=== PATIENT | male | born 1990 | race African-American/Black ===

== ENCOUNTER 2019-12-29 15:11 | Observation (INO) | payer SELFPAY ==
[2019-12-29 15:32] LABS: #Basophils 0.1 thou/uL (0.0-0.2); #Eosinphils 0.2 thou/uL (0.0-0.7); #Lymphocytes 1.6 thou/uL (1.20-3.40); #Monocytes 0.3 thou/uL (0.11-0.59); #Neutrophils 4.3 thou/uL (1.40-6.50); %Basophils 0.8 % (0.0-1.0); %Eosinophils 2.7 % (0.0-10.0); %Lymphocytes 25.3 % (21.0-51.0); %Monocytes 5.2 % (0.0-10.0); Hemoglobin 16.2 g/dL (14.0-18.0); Mean Corpuscular HGB CONC 33.4 g/dL (32.0-36.0); Mean Corpuscular Hemoglobin 29.6 pg (27.0-31.0); Mean Corpuscular Volume 88.6 fL (78.0-98.0); Mean Platelet Volume 7.3 fL (7.4-10.4); Platelet Count 281 thou/uL (130-400); RBC Distribution Width 11.7 % (11.5-14.5); Red Blood Cell (RBC) Count 5.48 mill/uL (4.70-6.10); White Blood Cell (WBC) Count 6.5 thou/uL (4.8-10.8)
--- NOTE | 2019-12-29 15:32 | RAD ---
EXAM: Single view of the chest HISTORY: Chest pain COMPARISON: 09/14/2014 FINDINGS: Single view of the chest shows a normal sized cardiomediastinal silhouette. There is no [place] dence of consolidation, mass, or pleural effusion. The bones are unremarkable. IMPRESSION: No evidence of acute cardiopulmonary disease
[2019-12-29] MEDS ORDERED: Ketorolac Tromethamine 30 MG/ML VIAL ONE (15:36)
[2019-12-29] MEDS ORDERED: Fentanyl 100 MCG/2 ML VIAL ONE (15:36)
[2019-12-29 15:38] LABS: INR-International Normal Ratio 0.9; Prothrombin Time 11.9 SEC (12.0-14.7)
[2019-12-29 15:40] LABS: D-Dimer Test Less than 0.27 *mcg/mL (0.27-0.43)
[2019-12-29 15:56] LABS: ALT (SGPT) 11 U/L (8-55); AST (SGOT) 16 U/L (5-34); Albumin 3.6 g/dL (3.5-5.0); Alkaline Phosphatase 76 U/L (40-110); Anion Gap 11 mmol/L (10-20); BUN (Urea Nitrogen) 6 mg/dL (8.9-20.6); Bilirubin, Total 0.4 mg/dL (0.2-1.2); Calc. Creatinine Clearance 0 mL/min (70-130); Calcium 8.7 mg/dL (7.8-10.44); Carbon Dioxide 29 mmol/L (22-29); Chloride 103 mmol/L (98-107); Estimated GFR-MDRD Greater than 90; Globulin 2.6 g/dL (2.4-3.5); Glucose 99 mg/dL (70-105); Lipase 25 U/L (8-78); Potassium 3.9 mmol/L (3.5-5.1); Protein, Total 6.2 g/dL (6.0-8.3); Sodium 139 mmol/L (136-145)
[2019-12-29] MEDS ORDERED: Acetaminophen 650 MG Suppository PR PRN (20:56)
[2019-12-29] MEDS ORDERED: Acetaminophen 325 MG TAB PO PRN (20:56)
[2019-12-29 21:27] VITALS: BMI 24.9
--- NOTE | 2019-12-29 21:43 | HP ---
TIME OF ASSESSMENT: 2000 hours. PRIMARY CARE PHYSICIAN: None. CHIEF COMPLAINT: Chest pain. HISTORY OF PRESENT ILLNESS: Mr. Yepez is a 29-year-old gentleman who presents to the emergency department with complaints of persisting chest pain since he woke up at 5 in this morning. The patient states he was woken from his sleep at 5 a.m. with left-sided chest pain. States that lasted for a brief period of time, though he is unable to pinpoint exactly how long, he sat up and states the pain eased. He was unable to fall back asleep and woke up around 9 a.m., since then has had persisting pain on the left side of his chest, which he describes as a stabbing sensation. He states eventually the pain started to radiate to the left side of his neck and left side of his upper back. Denies any associated diaphoresis, nausea, or vomiting. Does report having some difficulty taking in a deep breath when the pain first started, but is not feeling breathless now. Has felt well in himself in recent days and denies having any recent fevers, chills, or cough. No hemoptysis. No recent travels anywhere. Denies any abdominal pain. Has never experienced pain like this in the past. Has no known comorbidities. The patient also denies having any family history of heart disease or other comorbidities that he is aware of. Denies any trauma or injuries to his chest. Does not seem to be exacerbated by any movement. Pain has fully resolved since coming into the ER. He states it went away after he was given medications. In the ED, he was given Toradol 30 mg IV as well as 75 mcg of fentanyl IV and has received 1 L of normal saline. He underwent an EKG that showed no ST changes or T-wave abnormalities. He had laboratory studies that showed normal troponin and a negative D-dimer. Remaining laboratory studies unremarkable. He had a chest x-ray done that showed no evidence of acute cardiopulmonary disease. The patient reports having asthma as a child, but no longer requires any inhalers or has any difficulty with breathing. PAST SURGICAL HISTORY: Reports having surgery to his eardrum at a young age. SOCIAL HISTORY: Denies any tobacco use. Reports rare alcohol consumption. Denies any illicit drug use. Lives with family. FAMILY HISTORY: Noncontributory. PHYSICAL EXAMINATION: GENERAL: The patient appears well developed, well nourished, who is in no acute distress. VITAL SIGNS: Temperature 98.2, pulse 62, blood pressure 110/65, respirations 16, and O2 saturation 97% on room air. HEENT: Normocephalic and atraumatic. Pupils are equal, round, and reactive to light. Sclerae without icterus. Oropharynx is clear. NECK: Supple. Full range of motion. No tenderness. CARDIAC: Regular rate and rhythm. No chest wall tenderness to palpation. No murmurs, rubs, or gallops. LUNGS: Clear to auscultation bilaterally without any wheezes, rales, or rhonchi. No tachypnea. Normal chest expansion. ABDOMEN: Soft, nontender, and nondistended. Normoactive bowel sounds present. No guarding or rigidity. No renal angle tenderness. EXTREMITIES: No lower leg swelling or edema. Peripheral pulses equal bilaterally. SKIN: Warm and dry. NEUROLOGIC: Alert and oriented x3. No neuro deficits on exam. ALLERGIES: NO KNOWN DRUG ALLERGIES. CURRENT MEDICATIONS: None. INVESTIGATIONS: As mentioned above in HPI. IMPRESSION AND PLAN: Mr. Yepez is a 29-year-old gentleman presenting with complaints of persisting chest pain since early hours this morning with no history of trauma and no reproducible pain on exam, relieved with medications given in the emergency department. He did receive aspirin and an inch of nitroglycerin paste en route given by EMS. Initial troponin negative. An EKG unremarkable. He is being admitted for observation and further ACS workup. We will continue to trend troponins. We will order a treadmill stress test. We will plan to keep him n.p.o. at midnight. We will check TSH, magnesium, and add a BNP. If BNP elevated, we will add an echo. Of note, D-dimer negative. The patient asymptomatic at present. We will continue cardiac monitoring. We will repeat CBC and BMP in a.m. The patient's case was discussed with attending who agrees with plan of care as described above. Job ID: [id number]
[2019-12-29] MEDS: Famotidine 20 MG TAB PO SCH (22:46)
[2019-12-30 05:03] LABS: #Basophils 0.1 thou/uL (0.0-0.2); #Eosinphils 0.3 thou/uL (0.0-0.7); #Lymphocytes 1.9 thou/uL (1.20-3.40); #Monocytes 0.4 thou/uL (0.11-0.59); #Neutrophils 2.6 thou/uL (1.40-6.50); %Eosinophils 5.7 % (0.0-10.0); %Lymphocytes 35.9 % (21.0-51.0); %Monocytes 7.5 % (0.0-10.0); %Neutrophils 49.9 % (42.0-75.0); Hemoglobin 14.2 g/dL (14.0-18.0); Mean Corpuscular Hemoglobin 30.2 pg (27.0-31.0); Mean Corpuscular Volume 88.8 fL (78.0-98.0); Mean Platelet Volume 7.2 fL (7.4-10.4); Platelet Count 242 thou/uL (130-400); RBC Distribution Width 11.7 % (11.5-14.5); Red Blood Cell (RBC) Count 4.69 mill/uL (4.70-6.10); White Blood Cell (WBC) Count 5.3 thou/uL (4.8-10.8)
[2019-12-30 05:27] LABS: Anion Gap 9 mmol/L (10-20); BUN (Urea Nitrogen) 5 mg/dL (8.9-20.6); Calc. Creatinine Clearance 151 mL/min (70-130); Calcium 8.2 mg/dL (7.8-10.44); Carbon Dioxide 26 mmol/L (22-29); Cardiac Risk 3.8 (Less than 4.5); Chloride 107 mmol/L (98-107); Cholesterol 135 mg/dl (< 200 Desired); Estimated GFR-MDRD Greater than 90; Glucose 101 mg/dL (70-105); HDL Cholesterol 36 mg/dL (>60 Neg Risk); LDL Cholesterol, Calculated 54 mg/dL; Potassium 3.8 mmol/L (3.5-5.1); Sodium 138 mmol/L (136-145); Triglycerides 224 mg/dL (Less than 150)
[2019-12-30 05:32] LABS: Amphetamine Not Detected (NotDetected); Barbiturates Screen Not Detected (NotDetected); Benzodiazepine Screen Not Detected (NotDetected); Cocaine Metabolite Screen Not Detected (NotDetected); Medtox Control Line Valid? VALID (VALID); Medtox Reader # READER 4; Methadone Not Detected (NotDetected); Methamphetamine Not Detected (NotDetected); Opiate Screen Not Detected (NotDetected); Oxycodone Screen Not Detected (NotDetected); Phencyclidine (PCP) Not Detected (NotDetected); THC/Cannabinoid Screen Not Detected (NotDetected); Tricyclic Screen Not Detected (NotDetected)
[2019-12-30] MEDS ORDERED: Aspirin 325 mg Enteric Coated Tablet PO SCH (09:00)
[2019-12-30] MEDS: Famotidine 20 MG TAB PO SCH (10:20)
--- NOTE | 2019-12-30 13:08 | CON ---
DATE OF CONSULTATION: 12/30/2019 REASON FOR CONSULTATION: Chest pain. HISTORY OF PRESENT ILLNESS: Mr. Yepez is a 29-year-old gentleman, who comes to the hospital for chest pain. He has been having chest pain about 24 hours before arrival. He states the pain was worse with lying flat and it would improve by sitting up. He eventually came into the ER, he was given Toradol and fentanyl and that made the pain better. He has not had pain since. He was admitted and his EKG showed changes consistent with early repolarization, so he was admitted. Cardiology consulted for further evaluation and care. On my evaluation, Mr. Yepez denies any more chest pain, tightness, or pressure. He was started on colchicine this morning, but he states he has not had any chest pain since he was admitted and given Toradol and fentanyl in the ER. He denies any fevers or chills. No episodes of upper respiratory infections recently. He thinks he may have had a diarrhea about a month ago, but he is not completely sure about this. PAST MEDICAL HISTORY: None. FAMILY HISTORY: No early coronary artery disease. SOCIAL HISTORY: Social alcohol use. No tobacco. No drugs. SURGICAL HISTORY: Eardrum procedure at young age. MEDICATIONS: None. ALLERGIES: MORPHINE. REVIEW OF SYSTEMS: A 12-point review of systems was done and was all negative unless stated in the history of present illness. PHYSICAL EXAMINATION: VITAL SIGNS: Temperature 97.3, pulse 64, respiratory rate 14, saturations 98% on room air, blood pressure 116/77. GENERAL: Awake, alert, and oriented x3, in no distress. HEENT: Normocephalic and atraumatic. NECK: Supple. LUNGS: Clear. CARDIOVASCULAR: S1 and S2. No S3 or S4. No murmurs. ABDOMEN: Soft. Positive bowel sounds. EXTREMITIES: No edema. SKIN: Warm and dry. LABORATORY DATA: Laboratory work is reviewed. CBC was unremarkable. Coags were unremarkable. Chemistry was normal. CRP was just mildly elevated at 0.83. Troponin was completely undetectable x3. TSH was normal. Lipase was normal. Toxicology was negative. EKG was reviewed. ST changes consistent with early repolarization. There is some [place] depression that is new, this could be consistent with acute pericarditis, however, it is not completely clear as the ST changes are more like early repolarization, this would go with him being an gentleman. ASSESSMENT: 1. Chest pain. 2. Possible pericarditis. PLAN: 1. Agree with continuing colchicine. 2. We will get a nuclear stress test just to make sure that this is nothing else very unlikely at this young age. We will avoid a treadmill at this time, given the possibility of pericarditis. It should be safe to do a Lexiscan. 3. Echocardiogram. 4. If all of this is unremarkable, he may be discharged home on NSAID therapy. Thank you for letting us to participate in the care of the patient. We will follow. Job ID: [id number]
[2019-12-30] MEDS ORDERED: Ibuprofen 800 MG TAB PO SCH (14:00)
[2019-12-30] MEDS ORDERED: Famotidine 20 MG TAB PO SCH (14:00)
[2019-12-30] MEDS ORDERED: Regadenoson 0.4 MG/5 ML SYRINGE ONE (15:14)
[2019-12-30 15:39] VITALS: BP 131/71; TEMP 97.9
--- NOTE | 2019-12-30 15:47 | PDOC.HOSPP ---
- Subjective Subjective: Seen and examined. Denies chest pain since admission. States that chest pain was midsternal, he points just above the epigastric region. Patient denies heartburn reflux type symptoms. Patient denies prior cardiac disease. Cardiology consultation requested for further recommendations. - Objective Vital Signs & Weight: Vital Signs (12 hours) Temp Pulse Resp BP BP Pulse Ox 12/30/19 15:34 97.9 F 70 16 131/71 98 12/30/19 11:57 98.5 F 63 16 122/83 99 12/30/19 09:09 98 12/30/19 07:52 97.3 F L 64 14 116/77 98 12/30/19 04:45 71 18 125/70 99 Weight Weight 178 lb 14.4 oz Result Diagrams: 12/30/19 04:54 12/30/19 04:54 Radiology Reviewed by me: Yes Hospitalist ROS - Review of Systems All other systems reviewed; all pertinent +/- noted in HPI/Subj - Medication Medications: Active Medications Generic Name Dose Route Start Last Admin Trade Name Beni PRN Reason Stop Dose Admin Aspirin 81 mg 12/30/19 09:00 12/30/19 10:22 Ecotrin PO 81 mg DAILY YOKO Administration - Exam General Appearance: NAD, awake alert Eye: PERRL ENT: normocephalic atraumatic, moist mucosa Neck: supple, symmetric, no JVD, no thyromegaly, no lymphadenopathy, no carotid bruit Heart: RRR, no murmur, no gallops, no rubs Respiratory: CTAB, no wheezes, no rales, no ronchi, normal chest expansion Gastrointestinal: soft, non-tender, non-distended, no guarding, no rigidity Extremities: no edema Skin: no lesions, no rashes Neurological: cranial nerve grossly intact, no focal deficits Musculoskeletal: no muscle wasting Psychiatric: normal affect, normal behavior, A&O x 3 Hosp A/P (1) Chest pain Code(s): R07.9 - CHEST PAIN, UNSPECIFIED Status: Acute (2) Pericarditis Code(s): I31.9 - DISEASE OF PERICARDIUM, UNSPECIFIED Status: Acute - Plan Plan: medical unit with telemetry cardiology consultation, recommendations appreciated nuclear medicine stress test rule out reversible ischemia, though this is unlikely at the patient's age echocardiogram to monitor for structural abnormalities of heart symptomatic therapy for chest pain start colchicine start NSAIDs, with Pepcid continuous telemetry to monitor for arrhythmia blood pressure control blood sugar control G.I. prophylaxis DVT prophylaxis
--- NOTE | 2019-12-30 16:03 | NM ---
EXAM: Nuclear Medicine Cardiac SPECT with EF and wall motion: HISTORY: Chest pain Protocol: Exam was performed using Lexiscan protocol. The patient is injected with 32.4 millicuries of technetium 99m sestamibi intravenously for stress im ages. The patient is injected with 9.7 millicuries of technetium 99 sestamibi intravenously for resting anoop ges. Multiple SPECT images are performed in the short axis, vertical long axis, and horizontal long axis. FINDINGS: No scan evidence for infarct or ischemia. TID:1.1 LHR:0.41 EDV:106 mL EF:58% Wall motion:Normal IMPRESSION: Unremarkable cardiac SPECT with EF and wall motion.
--- NOTE | 2019-12-30 19:58 | DIS ---
DATE OF ADMISSION: 12/29/2019 DATE OF DISCHARGE: 12/30/2019 REASON FOR HOSPITALIZATION: Chest pain. SIGNIFICANT FINDINGS: The patient was found to have pericarditis, likely secondary to viral etiology. PROCEDURES PERFORMED AND TREATMENTS RENDERED: The patient was admitted to the medical unit with telemetry, please see full history and physical for details. The patient was seen and evaluated by Cardiology, who worked up etiology of chest pain. The patient had a nuclear medicine stress test, please see full report for details, there was no reversible ischemia identified. The patient had echocardiogram, please see full report for details, there were no structural abnormalities of the heart. The patient was started on colchicine and nonsteroidal anti-inflammatory medications per Cardiology. Cardiology recommended the patient safe for discharge with close followup in the outpatient setting. The patient recommended to follow up with primary care physician in the next 5 to 7 days. CONDITION ON DISCHARGE: Stable. SPECIFIC INSTRUCTIONS FOR THE PATIENT/FAMILY: 1. The patient is recommended to follow up with primary care physician in the next 5 to 7 days, or return to acute care hospital immediately if unable to be seen. 2. The patient recommended to take all medications as directed. 3. The patient recommended to return to acute care hospital immediately if signs or symptoms return, worsen, or any other new symptoms occur. DISCHARGE MEDICATIONS: 1. Colchicine 0.6 mg one tablet p.o. b.i.d. 2. Famotidine 20 mg one tablet p.o. t.i.d., to be taken with ibuprofen. 3. Ibuprofen 800 mg one tablet p.o. t.i.d., to be taken with famotidine. Greater than 37 minutes spent coordinating care and discharge process for this patient. Job ID: [id number]
[2019-12-30] MEDS ORDERED: Colchicine 0.6 MG TAB PO SCH (21:00)
--- NOTE | 2020-01-01 14:54 | EKG ---
Test Reason : Blood Pressure : / mmHG Vent. Rate : 077 BPM Atrial Rate : 077 BPM P-R Int : 122 ms QRS Dur : 088 ms QT Int : 358 ms P-R-T Axes : 047 050 035 degrees QTc Int : 405 ms Normal sinus rhythm Minimal voltage criteria for LVH, may be normal variant Early repolarization Borderline ECG Confirmed by KALEN RODNEY ([id number]), graphics editor BEN HERNANDEZ ([id number] on 01/01/2020 2:54:03 PM Referred By: Confirmed By:KALEN Smith
--- NOTE | 2020-01-01 14:54 | EKG ---
Test Reason : Blood Pressure : / mmHG Vent. Rate : 063 BPM Atrial Rate : 063 BPM P-R Int : 144 ms QRS Dur : 102 ms QT Int : 402 ms P-R-T Axes : 054 061 036 degrees QTc Int : 411 ms Normal sinus rhythm Early repolarization Normal ECG Confirmed by KALEN RODNEY ([id number]), news assignment editor BEN HERNANDEZ ([id number] on 01/01/2020 2:54:12 PM Referred By: Confirmed By:KALEN Smith
== END 2019-12-30 18:04 | disposition home or self-care (01) ==
LOC: ERS 15:11 → MERGE 18:13 → 2SW 18:13
PROVIDERS: ADMIT Internal Medicine; ATTEND Internal Medicine
DX: I31.9 Disease of pericardium, unspecified (principal); Z88.5 Allergy status to narcotic agent
CPT/HCPCS: 36415; 71045; 78452; 80048; 80053; 80061; 80306; 83690; 83735; 83880; 84443; 84484; 85025; 85379; 85610; 85652; 85730; 86140; 93005; 93017; 93306; 94760; 96374; 96375; G0378; J1885; J2785; J3010